=== PATIENT | male | born 1995 | race Caucasian/White ===

== ENCOUNTER 2017-06-12 23:56 | Emergency (ER) | payer OTHER, BC ==
[~2017-06-12] VITALS: Ht 182.9 cm; Wt 113.4 kg
[2017-06-13] MEDS ORDERED: MONT10TA PO (00:08)
[2017-06-13] MEDS ORDERED: BUDE10.2 INH (00:08)
[2017-06-13] MEDS ORDERED: FEXO-67 PO (00:08)
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
[2017-06-13 01:46] VITALS: BP 134/87
== END 2017-06-13 01:45 | disposition home or self-care (01) ==
LOC: ER 23:58
DX: S16.1XXA Strain of muscle, fascia and tendon at neck level, initial encounter (principal); S60.212A Contusion of left wrist, initial encounter; V87.7XXA Person injured in collision between other specified motor vehicles (traffic), initial encounter
CPT/HCPCS: 72125; 99283